=== PATIENT | female | born 1935 | race Caucasian/White ===

== ENCOUNTER → 2019-04-21 14:32 | Outpatient (CLI) | payer MEDICARE, OTHER, SELFPAY ==
[2019-04-03 12:32] VITALS: BMI 34.7
[2019-04-21 16:01] LABS: AST(SGOT) 16 U/L (15-37); Alanine Aminotransfer ALT/SGPT 24 U/L (13-56); Albumin, Serum 3.8 g/dL (3.2-5.0); Alkaline Phosphatase 172 U/L (45-117); Bilirubin, Direct 0.08 mg/dL (0.00-0.30); GGTP 9 U/L (5-55); Globulin 4.4 g/dL (2.2-4.2); Protein, Total 8.2 g/dL (6.4-8.2)
[2019-04-25 00:38] LABS: Anti-Mitochondrial AB 23.8 Units (0.0-20.0)
== END ==
LOC: MTRAD 14:32 → MTLAB 14:37
PROVIDERS: Family Provider Family Medicine; PCP Family Medicine; Referring Provider Internal Medicine Gastroenterology; Visit Provider Internal Medicine Gastroenterology
DX: K75.9 Inflammatory liver disease, unspecified (principal)
CPT/HCPCS: 36415; 80076; 82977; 83516; 86140